=== PATIENT | male | born 1985 | race Caucasian/White ===

== ENCOUNTER 2016-12-08 11:07 | Emergency (ER) | payer SELFPAY ==
[~2016-12-08] VITALS: Ht 177.8 cm; Wt 68.0 kg
--- NOTE | 2016-12-08 11:24 | NUR ---
Dr Morris at the bedside for eval and exam.
[2016-12-08] MEDS ORDERED: ONDANSETRON 4 MG/2 ML VIAL ONE ×2 (11:41→13:29)
[2016-12-08] MEDS ORDERED: PANTOPRAZOLE SODIUM 40 MG VIAL ONE (11:41)
[2016-12-08] MEDS ORDERED: MORPHINE SULFATE 2 MG/1 ML DISP.SYRIN ONE (11:41)
[2016-12-08] MEDS ORDERED: IV NORMAL SALINE 1000 ML BAG IV ONE (11:45)
[2016-12-08] MEDS ORDERED: MORPHINE SULFATE 2 MG/1 ML DISP.SYRIN IV ONE (11:45)
[2016-12-08] MEDS ORDERED: PANTOPRAZOLE SODIUM 40 MG VIAL IV ONE (11:45)
[2016-12-08] MEDS ORDERED: ONDANSETRON 4 MG/2 ML VIAL IV ONE ×2 (11:45→13:15)
[2016-12-08 11:58] LABS: CREATININE 1.3 mg/dL (0.6-1.3); POTASSIUM 4.1 mmol/L (3.5-5.1)
[2016-12-08 12:03] LABS: BILIRUBIN,DIRECT 0.2 mg/dL (0.0-0.2); BILIRUBIN,TOTAL 1.2 mg/dL (0.2-1.0); TOTAL PROTEIN, SERUM 7.8 g/dL (6.4-8.2)
[2016-12-08 12:59] LABS: BASOPHILS % (AUTO) 0.1 % (0.0-2.0); EOSINOPHILS % (AUTO) 0.1 % (0.0-7.0); HEMATOCRIT 45.4 % (40-50); HEMOGLOBIN 15.6 G/DL (14.0-18.0); LYMPHOCYTES # (AUTO) 0.5 K/UL (0.8-4.8); LYMPHOCYTES % (AUTO) 4.2 % (20.5-51.5); MEAN CORPUSCULAR HGB CONC 34 g/dL (32.0-37.0); MEAN CORPUSCULAR VOLUME 87.3 FL (82.0-92.0); MONOCYTES # (AUTO) 0.2 K/UL (0.1-1.30); MONOCYTES % (AUTO) 1.5 % (0.0-11.0); NEUTROPHILS # (AUTO) 10.3 K/UL (1.8-8.9); NEUTROPHILS % (AUTO) 94.1 % (38.5-71.5); PLATELET COUNT (AUTO) 299 K/UL (150-450)
--- NOTE | 2016-12-08 13:28 | NUR ---
Patient is resting comfortably in bed with eyes closed, NAD noted.
--- NOTE | 2016-12-08 13:45 | NUR ---
IV removed. Catheter intact and site benign. Pressure and 4x4 gauze applied to site. No bleeding noted.
[2016-12-08 14:12] VITALS: BP 126/77
--- NOTE | 2016-12-08 14:12 | NUR ---
Patient discharged to home in stable conditon. Written and verbal after care instructions given. Patient verbalizes understanding of instructions.
[2016-12-09] MEDS ORDERED: IBUP1TAB68 PO (09:22)
[2016-12-09] MEDS ORDERED: ONDA4TAB8 PO (09:22)
== END 2016-12-08 14:13 | disposition home or self-care (01) ==
LOC: ER 11:07
DX: K52.9 Noninfective gastroenteritis and colitis, unspecified (principal)
CPT/HCPCS: 36415; 83690; 85025; A4663; C9113; J2270; J2405; J7030

== ENCOUNTER 2016-12-09 09:12 | Emergency (ER) | payer SELFPAY ==
[~2016-12-09] VITALS: Ht 177.8 cm; Wt 68.0 kg
[2016-12-09] MEDS ORDERED: IBUP1TAB68 PO (09:22)
[2016-12-09] MEDS ORDERED: ONDA4TAB8 PO (09:22)
== END 2016-12-09 09:30 | disposition left against medical advice (07) ==
LOC: ER 09:12
DX: Z53.21 Procedure and treatment not carried out due to patient leaving prior to being seen by health care provider (principal)
CPT/HCPCS: A4663